=== PATIENT | male | born 1970 | race Caucasian/White ===

== ENCOUNTER 2016-09-17 00:43 | Emergency (ER) | payer SELFPAY ==
[~2016-09-17] VITALS: Ht 182.9 cm; Wt 72.1 kg
[2016-09-17 01:35] VITALS: BP_SYST 137
[2016-09-17] MEDS ORDERED: HYDROcodone/ACETAMIN 5-325 MG TAB (NORCO/ VICODIN) PO ONE (02:15)
[2016-09-17] MEDS ORDERED: SULFAMETHOXAZOLE/TRIMETHOPR DS 1 TABLET PO ONE (02:15)
== END 2016-09-17 02:40 | disposition home or self-care (01) ==
LOC: SED 00:43
DX: S80.261A Insect bite (nonvenomous), right knee, initial encounter (principal); L03.115 Cellulitis of right lower limb; F17.200 Nicotine dependence, unspecified, uncomplicated; Z90.89 Acquired absence of other organs; W57.XXXA Bitten or stung by nonvenomous insect and other nonvenomous arthropods, initial encounter; Y93.89 Activity, other specified; Y92.89 Other specified places as the place of occurrence of the external cause; Y99.8 Other external cause status
CPT/HCPCS: 87070-TC; 87186-TC; 99283